=== PATIENT | male | born 1970 | race African-American/Black ===

== ENCOUNTER 2016-11-03 18:22 | Emergency (ER) | payer MEDICARE ==
[~2016-11-03] VITALS: Ht 175.3 cm; Wt 63.6 kg
[~2016-11-03 18:22] MED LIST: AMLODIPINE5 MG PO; BETASERON0.3 MG SC; CEPHALEXIN500 M1 PO; CIPRO 250MG TA250 MG PO; DIME240E PO; DOXYCYCLINE 10100 MG PO; ENALAPRIL20 MG PO; FLAGYL500 MG PO; FLOMAX 0.40.4 MG/CAP PO; FLOMAX0.4 MG PO; HYDROCODONE/APAP; LEVAQUIN 750MG750 M1 PO; LISINOPRIL10 MG PO; LOPRESSOR HCT 21 TAB PO; LOPRESSOR100 MG PO; LORTAB 5/500 501 TAB PO; METOPROLOL100 MG PO; NORCO 325 MG-7.1 TAB PO; NORVASC 5MG5 MG/TAB PO; PEPCID 20MG TAB20 MG PO; PLEGRIDY125 MCG/0. SQ; PREDNISONE10 MG PO; RANITIDINE150 MG PO; TOPROL XL100 MG PO; TYLENOL 325MG325 MG PO; ULTRAM 50MG TAB50 MG PO; VASOTEC20 MG PO; anti depressant; tecfidera IM
[2016-11-03 18:29] VITALS: TEMP 100.7
[2016-11-03 19:29] LABS: BASO % 0.1 % (0.0-2.0); EOS % 0.2 % (0-4.0); GRAN # 7.4 (1.4-6.5); GRAN % 81.8 % (42.2-75.2); HEMATOCRIT 39.6 % (42.0-52.0); HEMOGLOBIN 12.6 g/dl (13.5-18.0); LYMPH # 1.1 (1.2-3.4); LYMPH % 11.6 % (20.0-51.0); MEAN CELL VOLUME 76 fl (80.0-100.0); MEAN CORPUSCULAR HEMOGLOBIN 24 pg (27.0-31.0); MEAN CORPUSCULAR HGB CONC 32 g/dl (33.0-37.0); MONO # 0.6 (0.1-0.6); MONO % 6.1 % (1.7-9.3); PLATELET COUNT 107 K/mm3 (130-400); RED BLOOD COUNT 5.23 M/mm3 (4.20-5.60); REDCELL DISTRIBUTION WIDTH-CV 14.1 % (11.5-14.5)
[2016-11-03 19:54] LABS: ADJUSTED CALCIUM 8.8 mg/dL (8.4-10.2); ALBUMIN 4.1 gm/dL (3.5-5.0); BILIRUBIN,TOTAL 0.7 mg/dL (0.0-1.0); CALCIUM 8.9 mg/dL (8.4-10.2); CREATININE, serum 0.95 mg/dL (0.66-1.25); POTASSIUM 3.5 mmol/L (3.4-5.0); TOTAL PROTEIN 7.9 gm/dL (6.4-8.2)
[2016-11-03 21:14] LABS: PH 5 (5-8); SQUAMOUS EPITHELIAL 0-2 /hpf; URINE APPEARANCE Hazy; URINE BACTERIA None Seen /hpf; URINE BILIRUBIN Negative (NEGATIVE); URINE BLOOD Negative (NEGATIVE); URINE COLOR Yellow; URINE GLUCOSE Negative (NEGATIVE); URINE KETONE Negative (NEGATIVE); URINE RBC 0-2 /hpf; URINE UROBILINOGEN Negative (NEGATIVE); URINE WBC 0-2 /hpf
[2016-11-03 23:19] VITALS: BP 132/86; PULSE 88
== END 2016-11-03 23:21 | disposition home or self-care (01) ==
LOC: COL.ER 18:22
PROVIDERS: Emergency Medicine
DX: G35 Multiple sclerosis (principal); I10 Essential (primary) hypertension; R29.898 Other symptoms and signs involving the musculoskeletal system
CPT/HCPCS: J2930; J7030; J7060

== ENCOUNTER 2016-11-05 09:30 | Outpatient (RCR) | payer MEDICARE ==
[2016-11-04 10:26] VITALS: BP 121/84; PULSE 87; TEMP 97.4
[~2016-11-05] VITALS: Ht 175.3 cm; Wt 63.6 kg
[2016-11-05 09:37] VITALS: BP 114/75; PULSE 55; TEMP 98.4
== END 2017-02-02 | disposition home or self-care (01) ==
LOC: EUO
DX: G35 Multiple sclerosis (principal)
CPT/HCPCS: J2930; J7050

== ENCOUNTER 2016-11-19 18:22 | Emergency (ER) | payer MEDICARE ==
[~2016-11-19] VITALS: Ht 175.3 cm; Wt 63.6 kg
[2016-11-19 18:37] VITALS: TEMP 97.7
[2016-11-19 19:29] LABS: BASO % 0.2 % (0.0-2.0); EOS # 0.1 (0.0-0.7); EOS % 0.9 % (0-4.0); GRAN # 4.4 (1.4-6.5); GRAN % 68.9 % (42.2-75.2); HEMATOCRIT 41.4 % (42.0-52.0); LYMPH # 1.5 (1.2-3.4); LYMPH % 23.1 % (20.0-51.0); MEAN CELL VOLUME 77 fl (80.0-100.0); MEAN CORPUSCULAR HEMOGLOBIN 24 pg (27.0-31.0); MEAN CORPUSCULAR HGB CONC 31 g/dl (33.0-37.0); MEAN PLATELET VOLUME 10.6 fl (7.4-10.4); MONO # 0.4 (0.1-0.6); MONO % 6.7 % (1.7-9.3); PLATELET COUNT 211 K/mm3 (130-400); RED BLOOD COUNT 5.36 M/mm3 (4.20-5.60); REDCELL DISTRIBUTION WIDTH-CV 15.2 % (11.5-14.5); WHITE BLOOD COUNT 6.4 K/mm3 (4.8-10.8)
[2016-11-19 19:40] LABS: ADJUSTED CALCIUM 8.9 mg/dL (8.4-10.2); ALANINE AMINOTRANSFERASE 18 U/L (21-72); ALBUMIN 3.7 gm/dL (3.5-5.0); ALKALINE PHOSPHATASE 64 U/L (50-136); ANION GAP 12 mmol/L (7-16); BILIRUBIN,TOTAL 0.8 mg/dL (0.0-1.0); BLOOD UREA NITROGEN 18 mg/dL (9-20); CALCIUM 8.7 mg/dL (8.4-10.2); CARBON DIOXIDE 25 mmol/L (22-30); CHLORIDE 105 mmol/L (98-107); CREATININE, serum 0.91 mg/dL (0.66-1.25); GLUCOSE 79 mg/dL (74-106); POTASSIUM 4.1 mmol/L (3.4-5.0); SODIUM 142 mmol/L (137-145); TOTAL PROTEIN 7.3 gm/dL (6.4-8.2)
[2016-11-19 19:52] LABS: TROPONIN-I < 0.012 ng/mL (0.000-0.034)
[2016-11-19 20:16] VITALS: BP 125/91; PULSE 60
== END 2016-11-19 20:18 | disposition home or self-care (01) ==
LOC: COL.ER 18:22
PROVIDERS: Emergency Medicine
DX: I10 Essential (primary) hypertension (principal); H57.8 Other specified disorders of eye and adnexa; G35 Multiple sclerosis

== ENCOUNTER 2018-09-19 15:12 | Emergency (ER) | payer MEDICARE ==
[~2018-09-19] VITALS: Ht 175.3 cm; Wt 63.6 kg
[2018-09-19 15:18] VITALS: BP 132/92; TEMP 99.9
[2018-09-19 17:04] LABS: COLLECTION METHOD CLEAN CATCH
[2018-09-19 17:12] LABS: BASO % 0.3 % (0.0-2.0); EOS % 0.3 % (0-4.0); GRAN # 8.2 (1.4-6.5); GRAN % 85.9 % (42.2-75.2); HEMATOCRIT 45.7 % (42.0-52.0); HEMOGLOBIN 14.4 g/dl (13.5-18.0); LYMPH # 0.8 (1.2-3.4); LYMPH % 8.6 % (20.0-51.0); MEAN CELL VOLUME 78 fl (80.0-100.0); MEAN CORPUSCULAR HEMOGLOBIN 24 pg (27.0-31.0); MEAN CORPUSCULAR HGB CONC 32 g/dl (33.0-37.0); MONO # 0.4 (0.1-0.6); MONO % 4.6 % (1.7-9.3); PLATELET COUNT 127 K/mm3 (130-400); REDCELL DISTRIBUTION WIDTH-CV 14.6 % (11.5-14.5)
[2018-09-19 17:12] LABS: MUCOUS Present /lpf; PH 6 (5-8); SQUAMOUS EPITHELIAL 0-2 /hpf; URINE APPEARANCE Clear; URINE BACTERIA None Seen /hpf; URINE BILIRUBIN Negative (NEGATIVE); URINE BLOOD Negative (NEGATIVE); URINE COLOR Yellow; URINE GLUCOSE Negative (NEGATIVE); URINE KETONE Negative (NEGATIVE); URINE LEUKOCYTE ESTERASE Negative (NEGATIVE); URINE NITRATE Negative (NEGATIVE); URINE PROTEIN(semi-quant) Negative (NEGATIVE); URINE RBC 0-2 /hpf
[2018-09-19 17:24] LABS: ALBUMIN 4.3 gm/dL (3.5-5.0); BILIRUBIN,TOTAL 0.6 mg/dL (0.0-1.0); CREATININE, serum 0.94 mg/dL (0.66-1.25); MAGNESIUM 1.8 mg/dL (1.6-2.3); POTASSIUM 4.3 mmol/L (3.4-5.0); TOTAL PROTEIN 8.4 gm/dL (6.4-8.2)
[2018-09-19 19:52] VITALS: PULSE 96
== END 2018-09-19 19:52 | disposition home or self-care (01) ==
LOC: COL.ER 15:12
PROVIDERS: Emergency Medicine
DX: G35 Multiple sclerosis (principal); M62.81 Muscle weakness (generalized); I10 Essential (primary) hypertension; Z98.890 Other specified postprocedural states
CPT/HCPCS: J2930; J7030; J7050

== ENCOUNTER 2018-09-21 16:00 | Outpatient (RCR) | payer MEDICARE ==
[2018-09-20 16:30] VITALS: BP 139/87; PULSE 47; TEMP 98
[~2018-09-21] VITALS: Ht 175.3 cm; Wt 65.9 kg
[2018-09-22 15:58] VITALS: BP 130/82; PULSE 60; TEMP 97.9
== END 2018-09-22 19:00 | disposition home or self-care (01) ==
LOC: EUO 09-22 19:00
DX: G35 Multiple sclerosis (principal); Z79.899 Other long term (current) drug therapy
CPT/HCPCS: J2930; J7050

== ENCOUNTER 2019-01-08 18:57 | Emergency (ER) | payer MEDICARE ==
[~2019-01-08] VITALS: Ht 172.7 cm; Wt 68.2 kg
[2019-01-08 19:18] LABS: BASO % 0.2 % (0.0-2.0); EOS # 0.1 (0.0-0.7); EOS % 0.8 % (0-4.0); GRAN # 5.6 (1.4-6.5); GRAN % 86.2 % (42.2-75.2); HEMOGLOBIN 12.2 g/dl (13.5-18.0); LYMPH # 0.4 (1.2-3.4); LYMPH % 6.3 % (20.0-51.0); MEAN CELL VOLUME 77 fl (80.0-100.0); MEAN CORPUSCULAR HEMOGLOBIN 24 pg (27.0-31.0); MEAN CORPUSCULAR HGB CONC 31 g/dl (33.0-37.0); MEAN PLATELET VOLUME 11.7 fl (7.4-10.4); MONO # 0.4 (0.1-0.6); MONO % 6.3 % (1.7-9.3); PLATELET COUNT 179 K/mm3 (130-400); RED BLOOD COUNT 5.08 M/mm3 (4.20-5.60); REDCELL DISTRIBUTION WIDTH-CV 13.8 % (11.5-14.5)
[2019-01-08 19:31] LABS: ALANINE AMINOTRANSFERASE < 6 U/L (21-72); ALBUMIN 3.8 gm/dL (3.5-5.0); ALKALINE PHOSPHATASE 70 U/L (50-136); ANION GAP 9 mmol/L (7-16); AST,SGOT 15 U/L (15-37); BILIRUBIN,TOTAL 0.4 mg/dL (0.0-1.0); BLOOD UREA NITROGEN 14 mg/dL (9-20); CALCIUM 8.5 mg/dL (8.4-10.2); CARBON DIOXIDE 25 mmol/L (22-30); CHLORIDE 103 mmol/L (98-107); CREATININE, serum 1.04 (0.66-1.25); GLUCOSE 80 mg/dL (74-106); POTASSIUM 3.5 mmol/L (3.4-5.0); SODIUM 136 mmol/L (137-145); TOTAL PROTEIN 7.1 gm/dL (6.4-8.2)
[2019-01-08 19:53] LABS: COLLECTION METHOD CLEAN CATCH
[2019-01-08 20:14] LABS: PH 6 (5-8); SQUAMOUS EPITHELIAL None Seen /hpf; URINE APPEARANCE Clear; URINE BACTERIA None Seen /hpf; URINE BILIRUBIN Negative (NEGATIVE); URINE BLOOD Negative (NEGATIVE); URINE COLOR Yellow; URINE GLUCOSE Negative (NEGATIVE); URINE KETONE Negative (NEGATIVE); URINE LEUKOCYTE ESTERASE Negative (NEGATIVE); URINE NITRATE Negative (NEGATIVE); URINE PROTEIN(semi-quant) Negative (NEGATIVE); URINE RBC None Seen /hpf; URINE UROBILINOGEN Negative (NEGATIVE)
[2019-01-08 21:59] VITALS: TEMP 99.5
[2019-01-08 22:22] VITALS: BP 129/90; PULSE 80
== END 2019-01-08 22:18 | disposition left against medical advice (07) ==
LOC: COL.ER 18:57
PROVIDERS: Emergency Medicine
DX: G35 Multiple sclerosis (principal); R50.9 Fever, unspecified
CPT/HCPCS: J2930; J7030; J7060

== ENCOUNTER 2019-01-12 08:00 | Outpatient (RCR) | payer MEDICARE ==
[2019-01-09 17:34] VITALS: BP 128/93; PULSE 50; TEMP 97.3
[2019-01-09 18:10] LABS: HEMATOCRIT 38.6 % (42.0-52.0); HEMOGLOBIN 12.4 g/dl (13.5-18.0); MEAN CELL VOLUME 76 fl (80.0-100.0); MEAN CORPUSCULAR HEMOGLOBIN 24 pg (27.0-31.0); MEAN CORPUSCULAR HGB CONC 32 g/dl (33.0-37.0); MEAN PLATELET VOLUME 13.1 fl (7.4-10.4); PLATELET COUNT 201 K/mm3 (130-400); REDCELL DISTRIBUTION WIDTH-CV 13.8 % (11.5-14.5)
--- NOTE | 2019-01-09 19:09 | NUR ---
This nurse reviewed with Jorge,Pharmacist appropriate times for next 3 days of Solumedrol infusions.Ok'd by Jorge to schedule as follows-sunday 1230-sun 0800 and sunday 0800.
[2019-01-10 12:30] VITALS: BP 122/83; PULSE 62; TEMP 97.4
[~2019-01-12] VITALS: Ht 172.7 cm; Wt 64.8 kg
[2019-01-13] MEDS ORDERED: PREDNISONE20 MG PO (00:20)
[2019-01-15] MEDS ORDERED: MIRALAX PA17 GM/Dose PO (10:35)
[2019-01-15] MEDS ORDERED: SENOKOT S 50 MG1 TAB PO (10:35)
--- NOTE | 2019-01-15 11:59 | NUR ---
01/10/19- pt called and told Nicholas STATON that he would go to the ER over the weekend at 1300 each day for Solumedrol infusions- did not show. 01/13/19- Elizabeth RN called and had to leave message to call back about the infusions 01/14/19- Alyssa RN called and had to leave message to call back about the infusions. Today the pt is seen to be an inpt in room 311. Closing account
== END 2019-01-15 12:27 | disposition home or self-care (01) ==
LOC: EUO 08:00
PROVIDERS: Emergency Medicine
DX: G35 Multiple sclerosis (principal)
CPT/HCPCS: J2930; J7050

== ENCOUNTER 2019-01-12 16:41 | Emergency (ER) | payer MEDICARE ==
[~2019-01-12] VITALS: Ht 175.3 cm; Wt 70.5 kg
[2019-01-12 17:01] VITALS: TEMP 98.4
[2019-01-12 18:20] LABS: GRAN # 5.9 (1.4-6.5); HEMATOCRIT 40.1 % (42.0-52.0); HEMOGLOBIN 12.5 g/dl (13.5-18.0); LYMPH # 0.7 (1.2-3.4); LYMPH % 9.1 % (20.0-51.0); MEAN CELL VOLUME 77 fl (80.0-100.0); MEAN CORPUSCULAR HEMOGLOBIN 24 pg (27.0-31.0); MEAN CORPUSCULAR HGB CONC 31 g/dl (33.0-37.0); MONO # 0.7 (0.1-0.6); MONO % 9.6 % (1.7-9.3); PLATELET COUNT 125 K/mm3 (130-400); RED BLOOD COUNT 5.19 M/mm3 (4.20-5.60); REDCELL DISTRIBUTION WIDTH-CV 14.1 % (11.5-14.5)
[2019-01-12 18:41] LABS: ALBUMIN 3.3 gm/dL (3.5-5.0); BILIRUBIN,TOTAL 0.4 mg/dL (0.0-1.0); CALCIUM 8.4 mg/dL (8.4-10.2); CREATININE, serum 1.74 (0.66-1.25); POTASSIUM 3.3 mmol/L (3.4-5.0); TOTAL PROTEIN 6.4 gm/dL (6.4-8.2)
[2019-01-12 20:50] LABS: PROTHROMBIN TIME 11.3 SECONDS (9.7-12.8)
[2019-01-12 22:14] LABS: CALCIUM 8.1 mg/dL (8.4-10.2); CREATININE, serum 1.66 (0.66-1.25); POTASSIUM 4.2 mmol/L (3.4-5.0)
[2019-01-13 00:20] VITALS: BP 131/70; PULSE 48
[2019-01-13] MEDS ORDERED: PREDNISONE20 MG PO (00:20)
== END 2019-01-13 00:24 | disposition home or self-care (01) ==
LOC: COL.ER 16:41
PROVIDERS: Emergency Medicine
DX: N13.30 Unspecified hydronephrosis (principal); N28.9 Disorder of kidney and ureter, unspecified; N32.89 Other specified disorders of bladder
CPT/HCPCS: J2765; J3010; J3480; J7030

== ENCOUNTER 2019-01-13 23:38 | Inpatient (IN) | payer MEDICARE ==
[~2019-01-13] VITALS: Ht 175.3 cm; Wt 77.9 kg
[2019-01-14 00:52] LABS: COLLECTION METHOD CATHETER
[2019-01-14 00:55] LABS: EOS # 0.1 (0.0-0.7); EOS % 0.9 % (0-4.0); GRAN % 77.5 % (42.2-75.2); HEMATOCRIT 40.4 % (42.0-52.0); HEMOGLOBIN 12.5 g/dl (13.5-18.0); LYMPH # 0.8 (1.2-3.4); MEAN CELL VOLUME 77 fl (80.0-100.0); MEAN CORPUSCULAR HEMOGLOBIN 24 pg (27.0-31.0); MEAN CORPUSCULAR HGB CONC 31 g/dl (33.0-37.0); MONO # 0.5 (0.1-0.6); MONO % 8.4 % (1.7-9.3); PLATELET COUNT 131 K/mm3 (130-400); RED BLOOD COUNT 5.23 M/mm3 (4.20-5.60); REDCELL DISTRIBUTION WIDTH-CV 14.4 % (11.5-14.5)
[2019-01-14 00:59] LABS: PROTHROMBIN TIME 11.2 SECONDS (9.7-12.8)
[2019-01-14 01:00] LABS: MUCOUS Present /lpf; PH 6 (5-8); SQUAMOUS EPITHELIAL None Seen /hpf; URINE APPEARANCE Clear; URINE BACTERIA Rare /hpf; URINE BILIRUBIN Negative (NEGATIVE); URINE BLOOD 1+ (NEGATIVE); URINE COLOR Straw; URINE GLUCOSE Negative (NEGATIVE); URINE KETONE Negative (NEGATIVE); URINE LEUKOCYTE ESTERASE Negative (NEGATIVE); URINE NITRATE Negative (NEGATIVE); URINE PROTEIN(semi-quant) Negative (NEGATIVE); URINE RBC 0-2 /hpf; URINE UROBILINOGEN Negative (NEGATIVE)
[2019-01-14 01:13] LABS: ALANINE AMINOTRANSFERASE 13 U/L (21-72); ALBUMIN 3.5 gm/dL (3.5-5.0); ALKALINE PHOSPHATASE 66 U/L (50-136); ANION GAP 9 mmol/L (7-16); AST,SGOT 26 U/L (15-37); BILIRUBIN,TOTAL 0.5 mg/dL (0.0-1.0); BLOOD UREA NITROGEN 36 mg/dL (9-20); C-REACTIVE PROTEIN 2.3 mg/dL (0.0-0.9); CALCIUM 8.1 mg/dL (8.4-10.2); CARBON DIOXIDE 26 mmol/L (22-30); CHLORIDE 105 mmol/L (98-107); CREATININE, serum 3.57 (0.66-1.25); GLUCOSE 87 mg/dL (74-106); LIPASE 31 U/L (23-300); POTASSIUM 3.3 mmol/L (3.4-5.0); SODIUM 141 mmol/L (137-145); TOTAL PROTEIN 6.7 gm/dL (6.4-8.2)
[2019-01-14 01:22] LABS: TROPONIN-I < 0.012 ng/mL (0.000-0.035)
--- NOTE | 2019-01-14 03:20 | NUR ---
Pt arrived to room 311, transferred per stretcher by ED staff. Pt awake, a&o, cooperative c cares. Denies pain or other c/o. Ellis to [place]. INT patent. Pt oriented to room, unit policies et current POC. Questions invited et answered, pt verbalizes understanding. No needs at this time. Will continue c admit process.
[2019-01-14 05:08] VITALS: BP 138/83; PULSE 58; TEMP 98.8
[2019-01-14 06:31] LABS: EOS % 0.9 % (0-4.0); GRAN # 3.4 (1.4-6.5); HEMOGLOBIN 11.7 g/dl (13.5-18.0); LYMPH # 0.7 (1.2-3.4); LYMPH % 15.1 % (20.0-51.0); MEAN CELL VOLUME 76 fl (80.0-100.0); MEAN CORPUSCULAR HEMOGLOBIN 24 pg (27.0-31.0); MEAN CORPUSCULAR HGB CONC 32 g/dl (33.0-37.0); MONO # 0.5 (0.1-0.6); MONO % 10.8 % (1.7-9.3); PLATELET COUNT 106 K/mm3 (130-400); RED BLOOD COUNT 4.84 M/mm3 (4.20-5.60)
[2019-01-14 06:33] LABS: HEMATOCRIT 36.7 % (42.0-52.0)
[2019-01-14 06:38] LABS: CALCIUM 8.3 mg/dL (8.4-10.2); CREATININE, serum 2.27 (0.66-1.25); POTASSIUM 3.4 mmol/L (3.4-5.0)
[2019-01-14 08:22] VITALS: BP 128/83; PULSE 67; TEMP 97.5
--- NOTE | 2019-01-14 08:45 | NUR ---
Assessment complete. Pt is AXO X3, denies having any pain at this time. Breathing is even and unlabored on room air. LF infusing, remains free of complications, and is CDI. Ellis is draining clear, pale yellow urine and is free of complications. Pt is sitting up in the bed waiting for his breakfast to arrive at this time and he denies further needs. Call light within reach, will continue to monitor.
--- NOTE | 2019-01-14 09:04 | NUR ---
SW and SW student met with the patient to discuss discharge plan. The patient lives in [place] with his , Rosa. He reports independence with ADLs and has a walker and canes. The patient's PCP is Dr. Juan Daniel Pearce and he receives his medications from [facility]. He reports no difficulties obtaining his meds. The patient does not have advanced directives in EMR, but he states that he does have a DPOA-HC completed and that it is his sister. The patient plans to return home with his upon discharge. No additional needs at this time.
[2019-01-14 12:44] VITALS: BP 127/80; PULSE 66; TEMP 98.2
[2019-01-14 15:41] VITALS: BP 129/81; PULSE 53; TEMP 98.2
--- NOTE | 2019-01-14 18:03 | NUR ---
Pt has been resting on and off throughout the day. He has remained free of pain and states he "feels much better". Family members are at the bedside; all questions answered. Pt is sitting up in the bed watching TV at this time and he denies further needs. Call light within reach.
--- NOTE | 2019-01-14 18:44 | NUR ---
Report given to BRIONNA Perales.
[2019-01-14 19:26] VITALS: BP 125/79; PULSE 58; TEMP 98.6
--- NOTE | 2019-01-14 22:58 | NUR ---
Patient assessed around 2054. Denies having pain and discomfort. Indwelling bourne catheter patent, and draining clear yellow urine at this time. Bowel sounds active x 4. Abdomen flat, soft, and non-tender. Reported he had a large bowel movement on previous shift. Denies having any needs or concerns at this time. Resting in bed with eyes closed. Call light is within reach.
[2019-01-14 23:44] VITALS: BP 117/81; PULSE 59; TEMP 98.9
[2019-01-15 03:49] VITALS: BP 120/80; PULSE 55; TEMP 98.3
--- NOTE | 2019-01-15 05:38 | NUR ---
Patient has been resting in bed with eyes closed most of this shift. Denies having pain and discomfort. NS continues at 125 ml/hr to peripheral IV to left forearm. Indwelling bourne catheter is patent, and draining clear yellow urine via dependent drainage. Voices no needs or concerns at this time. Resting in bed with eyes closed at this time. Call light is within reach.
[2019-01-15 06:16] LABS: EOS # 0.1 (0.0-0.7); EOS % 4.8 % (0-4.0); GRAN # 1.4 (1.4-6.5); GRAN % 52.5 % (42.2-75.2); HEMOGLOBIN 11.4 g/dl (13.5-18.0); LYMPH # 0.8 (1.2-3.4); LYMPH % 29.7 % (20.0-51.0); MEAN CELL VOLUME 76 fl (80.0-100.0); MEAN CORPUSCULAR HEMOGLOBIN 24 pg (27.0-31.0); MEAN CORPUSCULAR HGB CONC 32 g/dl (33.0-37.0); MONO # 0.3 (0.1-0.6); MONO % 12.6 % (1.7-9.3); PLATELET COUNT 112 K/mm3 (130-400); RED BLOOD COUNT 4.74 M/mm3 (4.20-5.60); REDCELL DISTRIBUTION WIDTH-CV 14.3 % (11.5-14.5)
[2019-01-15 06:18] LABS: HEMATOCRIT 36.2 % (42.0-52.0)
[2019-01-15 06:33] LABS: CALCIUM 8.1 mg/dL (8.4-10.2); CREATININE, serum 1.15 (0.66-1.25); POTASSIUM 3.4 mmol/L (3.4-5.0)
--- NOTE | 2019-01-15 07:00 | NUR ---
Report on to BRIONNA Najera
--- NOTE | 2019-01-15 07:30 | NUR ---
Shift assessment complete, VSS. NS@ 125/hr IV in left forearm, no redness, edema, or pain noted. Ellis cath patent, secured to right thigh, clear yellow urine noted. Pt reports no pain or concerns at this time.
[2019-01-15 07:32] VITALS: BP 136/89; PULSE 55; TEMP 98.9
[2019-01-15 10:27] VITALS: BP 132/74; PULSE 45; TEMP 97.8
[2019-01-15] MEDS ORDERED: SENOKOT S 50 MG1 TAB PO (10:35)
[2019-01-15] MEDS ORDERED: MIRALAX PA17 GM/Dose PO (10:35)
--- NOTE | 2019-01-15 11:24 | NUR ---
The patient is to discharge back home with his today, 01/15. SW met with the patient to discuss physical therapies recommendation of considering outpatient PT and an equipment need for a motorized scooter. The patient reports that he is not interested in outpatient PT at this time, but was interested in obtaining a script for PT in the event that he changes his mind. SW informed the patient's PA, Colleen, and a script was provided to the patient. The patient reports that he is also not interested in getting a motorized scooter at this time. No additional needs at this time.
--- NOTE | 2019-01-15 12:00 | NUR ---
Pt discharged at this time. LF INT discontinued with the catheter tip intact. Education provided and all questions were answered. Pt verbalizes understanding. Pt escourted out via WC with BRIONNA Mckay.
== END 2019-01-15 12:02 | disposition home or self-care (01) | DRG 683 ==
LOC: COL.ER 23:38 → MEDICAL 01-14 01:54
PROVIDERS: Emergency Medicine; Nurse Practitioner Family; ADMIT Internal Medicine
DX: N17.9 Acute kidney failure, unspecified (principal); G82.20 Paraplegia, unspecified; N13.30 Unspecified hydronephrosis; D50.9 Iron deficiency anemia, unspecified; G35 Multiple sclerosis; E87.6 Hypokalemia; I10 Essential (primary) hypertension; N31.9 Neuromuscular dysfunction of bladder, unspecified; R33.9 Retention of urine, unspecified
CPT/HCPCS: 99222-AI; 99239; J1644; J7030

== ENCOUNTER → 2019-01-13 | Outpatient (CLI) | payer MEDICARE ==
[~2019-01-13] MED LIST changes: +PREDNISONE20 MG PO
[2019-01-13 14:23] LABS: CALCIUM 7.8 mg/dL (8.4-10.2); POTASSIUM 3.3 mmol/L (3.4-5.0)
== END ==
LOC: COL.LAB 13:18
PROVIDERS: Urology
DX: Z01.89 Encounter for other specified special examinations (principal)

== ENCOUNTER → 2019-01-30 | Outpatient (CLI) | payer MEDICARE ==
[~2019-01-30] MED LIST changes: +MIRALAX PA17 GM/Dose PO; +SENOKOT S 50 MG1 TAB PO
== END ==
LOC: COL.RAD 09:00
DX: N13.39 Other hydronephrosis (principal); Z96.0 Presence of urogenital implants

== ENCOUNTER 2019-02-05 23:49 | Emergency (ER) | payer MEDICARE ==
[~2019-02-05] VITALS: Ht 172.7 cm; Wt 68.2 kg
[2019-02-05 23:50] VITALS: TEMP 98.9
[2019-02-05] MEDS ORDERED: FLOMAX 0.40.4 MG/CAP PO (23:55)
[2019-02-06 00:24] LABS: COLLECTION METHOD CATHETER
[2019-02-06 00:28] LABS: HEMATOCRIT 39.2 % (42.0-52.0); HEMOGLOBIN 12.3 g/dl (13.5-18.0); MEAN CELL VOLUME 76 fl (80.0-100.0); MEAN CORPUSCULAR HEMOGLOBIN 24 pg (27.0-31.0); MEAN CORPUSCULAR HGB CONC 31 g/dl (33.0-37.0); MEAN PLATELET VOLUME 11.9 fl (7.4-10.4); PLATELET COUNT 243 K/mm3 (130-400); RED BLOOD COUNT 5.14 M/mm3 (4.20-5.60); REDCELL DISTRIBUTION WIDTH-CV 14.1 % (11.5-14.5)
[2019-02-06 00:39] LABS: ALBUMIN 3.9 gm/dL (3.5-5.0); BILIRUBIN,TOTAL 0.4 mg/dL (0.0-1.0); CREATININE, serum 1.12 (0.66-1.25); POTASSIUM 3.8 mmol/L (3.4-5.0); TOTAL PROTEIN 7.4 gm/dL (6.4-8.2)
[2019-02-06 00:44] LABS: PH 7 (5-8); SQUAMOUS EPITHELIAL None Seen /hpf; URINE APPEARANCE Clear; URINE BACTERIA None Seen /hpf; URINE BILIRUBIN Negative (NEGATIVE); URINE BLOOD 2+ (NEGATIVE); URINE COLOR Straw; URINE GLUCOSE Negative (NEGATIVE); URINE KETONE Negative (NEGATIVE); URINE LEUKOCYTE ESTERASE Negative (NEGATIVE); URINE NITRATE Negative (NEGATIVE); URINE PROTEIN(semi-quant) Negative (NEGATIVE); URINE UROBILINOGEN Negative (NEGATIVE)
[2019-02-06 00:54] LABS: BAND 2 % (0-10); BASOPHIL 1 % (0-2); LYMPHOCYTE 5 % (20.0-51.0); NEUTROPHILS 91 % (42.0-75.2); PLATELET ESTIMATE NORMAL (NORMAL)
[2019-02-06 00:55] LABS: ANISOCYTOSIS 1+; HYPOCHROMIA 2+; OVALOCYTES 3+; POLYCHROMASIA 2+; TARGET CELLS 1+; TEAR DROP CELLS 1+
[2019-02-06 01:17] VITALS: BP 128/89; PULSE 91
[2019-02-07] MEDS ORDERED: CEPHALEXIN500 M1 PO (17:03)
[2019-02-08] MEDS ORDERED: CIPRO 500MG TA500 MG PO (11:50)
== END 2019-02-06 01:17 | disposition home or self-care (01) ==
LOC: COL.ER 23:49
PROVIDERS: Emergency Medicine
DX: R33.9 Retention of urine, unspecified (principal); I10 Essential (primary) hypertension

== ENCOUNTER 2019-02-15 12:12 | Emergency (ER) | payer MEDICARE ==
[~2019-02-15] VITALS: Ht 172.7 cm; Wt 68.2 kg
[~2019-02-15 12:12] MED LIST changes: +CIPRO 500MG TA500 MG PO
[2019-02-15 12:15] VITALS: TEMP 99.9
[2019-02-15 12:50] LABS: BASO % 0.2 % (0.0-2.0); EOS # 0.1 (0.0-0.7); EOS % 0.5 % (0-4.0); GRAN # 9.2 (1.4-6.5); GRAN % 86.6 % (42.2-75.2); HEMOGLOBIN 12.5 g/dl (13.5-18.0); LYMPH # 0.7 (1.2-3.4); LYMPH % 6.2 % (20.0-51.0); MEAN CELL VOLUME 75 fl (80.0-100.0); MEAN CORPUSCULAR HEMOGLOBIN 24 pg (27.0-31.0); MEAN CORPUSCULAR HGB CONC 32 g/dl (33.0-37.0); MONO # 0.6 (0.1-0.6); MONO % 5.9 % (1.7-9.3); PLATELET COUNT 130 K/mm3 (130-400); RED BLOOD COUNT 5.19 M/mm3 (4.20-5.60); REDCELL DISTRIBUTION WIDTH-CV 14.4 % (11.5-14.5)
[2019-02-15 12:58] LABS: ALANINE AMINOTRANSFERASE < 6 U/L (21-72); ALKALINE PHOSPHATASE 80 U/L (50-136); ANION GAP 10 mmol/L (7-16); AST,SGOT 19 U/L (15-37); BILIRUBIN,TOTAL 0.6 mg/dL (0.0-1.0); BLOOD UREA NITROGEN 15 mg/dL (9-20); C-REACTIVE PROTEIN 1.1 mg/dL (0.0-0.9); CALCIUM 8.8 mg/dL (8.4-10.2); CARBON DIOXIDE 25 mmol/L (22-30); CHLORIDE 104 mmol/L (98-107); CREATININE, serum 1.24 (0.66-1.25); GLUCOSE 81 mg/dL (74-106); POTASSIUM 4.1 mmol/L (3.4-5.0); SODIUM 139 mmol/L (137-145); TOTAL PROTEIN 7.5 gm/dL (6.4-8.2)
[2019-02-15 14:18] LABS: COLLECTION METHOD CLEAN CATCH
[2019-02-15] MEDS ORDERED: MEDROL 4MG DOSPA4 MG PO (14:21)
[2019-02-15 14:35] LABS: MUCOUS Present /lpf; PH 6 (5-8); SQUAMOUS EPITHELIAL None Seen /hpf; URINE APPEARANCE Clear; URINE BACTERIA None Seen /hpf; URINE BILIRUBIN Negative (NEGATIVE); URINE BLOOD 1+ (NEGATIVE); URINE COLOR Yellow; URINE GLUCOSE Negative (NEGATIVE); URINE KETONE Negative (NEGATIVE); URINE LEUKOCYTE ESTERASE Negative (NEGATIVE); URINE NITRATE Negative (NEGATIVE); URINE PROTEIN(semi-quant) Negative (NEGATIVE); URINE UROBILINOGEN Negative (NEGATIVE)
[2019-02-15 15:45] VITALS: BP 120/85; PULSE 83
== END 2019-02-15 15:45 | disposition home or self-care (01) ==
LOC: COL.ER 12:12
PROVIDERS: Emergency Medicine
DX: G35 Multiple sclerosis (principal)
CPT/HCPCS: J2930; J7040

== ENCOUNTER → 2019-07-08 | Outpatient (CLI) | payer MEDICARE ==
[~2019-07-08] MED LIST changes: +MEDROL 4MG DOSPA4 MG PO
== END ==
LOC: COL.LAB 11:00
DX: R39.12 Poor urinary stream (principal)
CPT/HCPCS: G0103

== ENCOUNTER → 2019-07-18 | Outpatient (CLI) | payer MEDICARE | LOC: COL.RAD 09:00 | DX: R39.12 Poor urinary stream (principal); R33.9 Retention of urine, unspecified ==

== ENCOUNTER 2020-07-09 18:26 | Emergency (ER) | payer MEDICARE ==
[~2020-07-09] VITALS: Ht 172.7 cm; Wt 68.2 kg
[2020-07-09 18:27] VITALS: TEMP 99.8
[2020-07-09 19:50] LABS: BASO % 0.3 % (0.0-2.0); EOS % 0.1 % (0-4.0); GRAN # 5.8 (1.4-6.5); GRAN % 81.2 % (42.2-75.2); HEMATOCRIT 38.1 % (42.0-52.0); HEMOGLOBIN 12.1 g/dl (13.5-18.0); LYMPH # 0.8 (1.2-3.4); LYMPH % 11.1 % (20.0-51.0); MEAN CELL VOLUME 77 fl (80.0-100.0); MEAN CORPUSCULAR HEMOGLOBIN 25 pg (27.0-31.0); MEAN CORPUSCULAR HGB CONC 32 g/dl (33.0-37.0); MONO # 0.5 (0.1-0.6); MONO % 7.2 % (1.7-9.3); PLATELET COUNT 136 K/mm3 (130-400); RED BLOOD COUNT 4.92 M/mm3 (4.20-5.60); REDCELL DISTRIBUTION WIDTH-CV 14.9 % (11.5-14.5)
[2020-07-09 20:01] LABS: ALANINE AMINOTRANSFERASE 8 U/L (4-49); ALKALINE PHOSPHATASE 75 U/L (50-136); ANION GAP 9 mmol/L (7-16); AST,SGOT 18 U/L (15-37); BILIRUBIN,TOTAL 0.6 mg/dL (0.0-1.0); BLOOD UREA NITROGEN 13 mg/dL (9-20); C-REACTIVE PROTEIN < 0.5 mg/dL (0.0-0.9); CALCIUM 8.7 mg/dL (8.4-10.2); CARBON DIOXIDE 26 mmol/L (22-30); CHLORIDE 103 mmol/L (98-107); CREATININE, serum 1.02 (0.66-1.25); GLUCOSE 76 mg/dL (74-106); POTASSIUM 3.6 mmol/L (3.4-5.0); SODIUM 138 mmol/L (137-145); TOTAL PROTEIN 7.5 gm/dL (6.4-8.2)
[2020-07-09 20:57] VITALS: BP 125/80; PULSE 60
== END 2020-07-09 20:58 | disposition home or self-care (01) ==
LOC: COL.ER 18:26
PROVIDERS: Family Medicine
DX: E86.0 Dehydration (principal); R20.2 Paresthesia of skin; G35 Multiple sclerosis

== ENCOUNTER 2020-09-30 15:03 | Emergency (ER) | payer MEDICARE ==
[~2020-09-30] VITALS: Ht 172.7 cm; Wt 68.2 kg
[2020-09-30 15:29] LABS: BASO % 0.1 % (0.0-2.0); EOS # 0.1 (0.0-0.7); EOS % 0.6 % (0-4.0); GRAN # 7.4 (1.4-6.5); GRAN % 87.6 % (42.2-75.2); HEMATOCRIT 41.4 % (42.0-52.0); HEMOGLOBIN 13.1 g/dl (13.5-18.0); LYMPH # 0.5 (1.2-3.4); LYMPH % 5.9 % (20.0-51.0); MEAN CELL VOLUME 77 fl (80.0-100.0); MEAN CORPUSCULAR HEMOGLOBIN 24 pg (27.0-31.0); MEAN CORPUSCULAR HGB CONC 32 g/dl (33.0-37.0); MONO # 0.5 (0.1-0.6); MONO % 5.6 % (1.7-9.3); PLATELET COUNT 149 K/mm3 (130-400); REDCELL DISTRIBUTION WIDTH-CV 13.8 % (11.5-14.5)
[2020-09-30 15:39] LABS: ALBUMIN 4.2 gm/dL (3.5-5.0); BILIRUBIN,TOTAL 0.7 mg/dL (0.0-1.0); CALCIUM 9.2 mg/dL (8.4-10.2); CREATININE, serum 1.02 (0.66-1.25); TOTAL PROTEIN 8.1 gm/dL (6.4-8.2)
[2020-09-30 17:05] LABS: COLLECTION METHOD CLEAN CATCH
[2020-09-30 17:17] LABS: MUCOUS Present /lpf; PH 5 (5-8); SQUAMOUS EPITHELIAL 0-2 /hpf; URINE APPEARANCE Hazy; URINE BACTERIA Occasional /hpf; URINE BILIRUBIN Negative (NEGATIVE); URINE BLOOD 1+ (NEGATIVE); URINE COLOR Yellow; URINE GLUCOSE Negative (NEGATIVE); URINE KETONE Negative (NEGATIVE); URINE LEUKOCYTE ESTERASE 3+ (NEGATIVE); URINE NITRATE Negative (NEGATIVE); URINE PROTEIN(semi-quant) Negative (NEGATIVE); URINE UROBILINOGEN Negative (NEGATIVE)
[2020-09-30 17:42] VITALS: TEMP 98.6
[2020-09-30] MEDS ORDERED: MACROBID 1100 MG/CAP PO (17:47)
[2020-09-30 17:58] VITALS: BP 133/86; PULSE 81
[2020-10-01] MEDS ORDERED: CIPRO 500MG TA500 MG PO (15:15)
== END 2020-09-30 17:58 | disposition home or self-care (01) ==
LOC: COL.ER 15:03
PROVIDERS: Physician Assistant
DX: E16.2 Hypoglycemia, unspecified (principal); I10 Essential (primary) hypertension; G35 Multiple sclerosis
CPT/HCPCS: J7030

== ENCOUNTER 2022-11-03 07:55 | Outpatient (CLI) | payer MEDICARE ==
[~2022-11-03 07:55] MED LIST changes: +HIGH POTENCY M1 EAC1 PO; +MACROBID 1100 MG/CAP PO; +REVATIO20 MG PO; +SOLU-MEDRO1000 MG/1 IJ
[2022-11-03 09:10] VITALS: BP 124/81; PULSE 48; TEMP 98.4
[2022-11-03 10:06] VITALS: BP 143/83; PULSE 43
== END 2022-11-03 10:44 | disposition home or self-care (01) ==
LOC: EUO 07:55
DX: Z51.81 Encounter for therapeutic drug level monitoring (principal)
CPT/HCPCS: J2930; J7050

== ENCOUNTER 2022-11-27 10:02 | Outpatient (CLI) | payer MEDICARE ==
[2022-11-27] VITALS (9 sets, daily range): BP systolic 93–146; BP diastolic 79–92; PULSE 50–117; TEMP 98.5
[~2022-11-27] VITALS: Ht 172.7 cm; Wt 75.1 kg
[~2022-11-27 10:02] MED LIST changes: -LOPRESSOR100 MG PO
[2022-11-27] MEDS ORDERED: LOPRESSOR100 MG PO (13:11)
[2022-11-27] MEDS ORDERED: PREDNISONE20 MG PO (13:12)
[2022-11-27] MEDS ORDERED: AMPYRA10 MG PO (13:12)
[2022-11-27] MEDS ORDERED: CIALIS10 MG PO (13:13)
[2022-11-27] MEDS ORDERED: PLEGRIDY IM (13:18)
[2022-11-27] MEDS ORDERED: EMLA CREAM TOP (13:43)
--- NOTE | 2022-11-27 16:03 | NUR ---
Pt discharged via wheelchair by this nurse.
== END 2022-11-27 16:46 ==
LOC: EUO 10:02
DX: Z51.81 Encounter for therapeutic drug level monitoring (principal)
CPT/HCPCS: J2350; J2930; J7050

== ENCOUNTER → 2022-12-14 | Outpatient (CLI) | payer MEDICARE ==
[~2022-12-14] MED LIST changes: +AMOXICILLIN875 MG PO; +AMPYRA10 MG PO; +CIALIS10 MG PO; +EMLA CREAM TOP; +LOPRESSOR100 MG PO; +PLEGRIDY IM
== END ==
LOC: COL.RAD 08:15
DX: G35 Multiple sclerosis (principal); N52.9 Male erectile dysfunction, unspecified; R29.898 Other symptoms and signs involving the musculoskeletal system
CPT/HCPCS: A9575

== ENCOUNTER 2023-06-13 07:47 | Outpatient (CLI) | payer MEDICARE ==
[2023-06-13] VITALS (18 sets, daily range): BP systolic 123–163; BP diastolic 94–116; PULSE 65–96; TEMP 97.8
[~2023-06-13] VITALS: Ht 172.7 cm; Wt 76.2 kg
[~2023-06-13 07:47] MED LIST changes: +AMOXICILLIN 8751 TAB PO; +CYMBALTA 60MG60 MG; +OCREVUS300 MG/10 IV; +PREDNISONE50 MG PO
--- NOTE | 2023-06-13 12:20 | NUR ---
INFUSION COMPLETED.PT DENIES SIGN OR SYMTOMS OF REACTION.WILL MONITOR FOR ONE HOUR POST.
--- NOTE | 2023-06-13 15:33 | NUR ---
pt arrived to eu 13 via wheelchair and was assisted into recliner. 24g IV was placed, pre-medications were administered, and Ocrevus infusion was initiated. approx 20 minutes into the infusion, pt reported to nurse that his "throat was feeling itchy at the back and he was a little lightheaded". upon hearing this, this RN immediatley stopped the infusion at 0920. pt was given more fluids to consume and vital signs were continually monitored. at 1000 pt stated that "his throat was beginning to feel better and the lightheadedness was gone". pt Ocrevus infusion was restarted at 1005 at half the infusion rate (50 ml/hr). pt was free from acute complaints for the remainder of the infusion. following the infusion, the pt was observed for one hour and then discharged. iv was discontinued upon discharge and pt was assisted to main lobby via wheelchair. Pt stated that throat pain had completely subsided by time of discharge.
== END 2023-06-13 13:15 | disposition home or self-care (01) ==
LOC: EUO 07:47
DX: G35 Multiple sclerosis (principal)
CPT/HCPCS: J2350; J2930; J7040